=== PATIENT | female | born 1955 | race Caucasian/White ===

== ENCOUNTER 2022-11-14 15:21 | Emergency (ER) | payer MEDICARE, OTHER, SELFPAY ==
[2022-11-14 15:23] VITALS: BP 175/85; PULSE 85; RESP 14; TEMP 36.8; O2SAT 97; BMI 35.2
--- NOTE | 2022-11-14 15:55 | ED.VIS.CHEST ---
HPI History of Present Illness Chief Complaint: Chest Pain Informant: patient and spouse/S.O. Onset/Context/Timing Onset: Today Activity at onset: gradual Timing: Waxes and wanes Quality: Positive for Pressure Location: Substernal Current Severity: Mild Maximum Severity: Mild Narrative Narrative: Patient presents secondary to chest and left arm pain. She states she woke early this morning, around 2 AM, with pain in her left shoulder and upper left arm. She also had some pain in her left leg. She took some Tylenol along with a baby aspirin and went to sleep on the sofa. She states later on in the morning she developed some chest pressure and still had pain in her left shoulder along with some slight pain in her left jaw. She denies shortness of breath. Patient denies personal history of cardiac disease. Family history is noted in both of her parents. [facility] Medical History Hx of gastroesophageal reflux (GERD) Hypercholesteremia Hypertension Hypothyroid Home Medications diltiazem HCl 180 mg capsule,extended release 24 hr 180 mg PO Q24H 11/14/22 [History Last Taken Unknown] levothyroxine 75 mcg tablet 75 mcg PO DAILY 11/14/22 [History Last Taken Unknown] lisinopril 10 mg tablet 10 mg PO DAILY 11/14/22 [History Last Taken Unknown] omeprazole 20 mg capsule,delayed release 20 mg PO .qam 11/14/22 [History Last Taken Unknown] simvastatin 20 mg tablet 20 mg PO DAILY 11/14/22 [History Last Taken Unknown] Allergy/AdvReac Type Severity Reaction Status Date / Time No Known Allergies Allergy Verified 11/14/22 15:22 Social History Smoking Status: Never smoker ROS ROS ED Constitutional Constitutional ED: Denies chills or fever(s) Eyes Eyes: Denies change in vision or discharge from eye(s) ENT ENT ED: Denies discharge from eye(s), rhinorrhea or sore throat Cardiovascular Cardiovascular: Reports chest pain; Denies palpitations Respiratory/Chest Respiratory/Chest: Denies cough or dyspnea Gastrointestinal Gastrointestinal: Denies abdominal pain, diarrhea, nausea or vomiting Genitourinary Genitourinary ED: Denies difficulty urinating or dysuria Musculoskeletal Musculoskeletal: Reports extremity pain; Denies back pain Integumentary Denies Abrasions or rash Neurologic Neurologic: Reports headache(s); Denies weakness Psychiatric Psychiatric: Denies anxiety or depression Allergic/Immunologic Allergic/Immunologic ED: Denies lip swelling or urticaria EXAM Physical Exam Const Vital Signs: 11/14/22 15:23 11/14/22 15:28 11/14/22 16:07 Temperature 98.3 F Temperature Source Oral Pulse Rate 85 Respiratory Rate 14 Respiratory Effort Normal Non-Labored Blood Pressure 175/85 H Blood Pressure Mean 115 Pulse Ox 97 Oxygen Delivery Method Room Air Room Air 11/14/22 16:30 11/14/22 17:30 Temperature Temperature Source Pulse Rate 70 71 Respiratory Rate 16 15 Respiratory Effort Blood Pressure 144/86 H 135/78 H Blood Pressure Mean 105 97 Pulse Ox 96 95 Oxygen Delivery Method Room Air Positive well nourished and well developed General Appearance ED: well developed HEENT Reports normocephalic and head/scalp atraumatic Eyes PERRL and EOMs intact bilaterally Neck supple Chest Wall inspection of chest normal and palpation of chest normal Resp normal respiratory effort and clear to auscultation bilaterally Cardio regular rate and regular rhythm GI normal to inspection, nondistended, normoactive bowel sounds Palpation: soft Extremity normal to inspection Neuro oriented x3 and no sensory deficits noted Sensorium / Orientation: alert Motor Exam: strength 5/5 throughout Psych mental status grossly normal Skin no rashes or lesions noted Heart Score History: Slightly/Non-Suspicious ECG: Normal Age: >/= 65 years Risk Factors: 1 or 2 Risk Factors Troponin: </= Normal Limit Score: 3 MDM MDM MDM Narrative Medical decision making narrative: Patient had taken 1 baby aspirin earlier today. She was given 3 additional baby aspirin here. Patient is placed on radiographer cardiac catheterization. EKG obtained to evaluate for cardiac arrhythmia/ischemia. Chest x-ray obtained to evaluate for acute lung pathology, cardiac size, or mediastinal abnormality. Labwork obtained to evaluate for leukocytosis, anemia, and electrolyte derangement. History & Record Review Discussion w/independent historian: Patient and Significant other Lab Data Attestation: I reviewed the patient's lab results. Labs: Laboratory Results - last 24 hr 11/14/22 15:55 WBC 9.2 RBC 5.16 Hgb 16.5 H Hct 49.6 H MCV 96.1 MCH 32.0 MCHC 33.3 RDW Std Deviation 46.4 H RDW Coeff of Jus 13.0 Plt Count 249 MPV 10.2 Immature Gran % (Auto) 0.400 Neut % (Auto) 55.2 Lymph % (Auto) 32.6 [place] % (Auto) 7.2 Eos % (Auto) 3.6 Baso % (Auto) 1.0 Absolute Neuts (auto) 5.1 Absolute Lymphs (auto) 2.99 Nucleated RBC % 0 Sodium 141 Potassium 3.6 Chloride 110 H Carbon Dioxide 25.0 Anion Gap 6 BUN 14 Creatinine 0.90 Estim Creat Clear Calc 48.63 Est GFR (MDRD) Af Amer 80 Est GFR (MDRD) Non-Af 66 BUN/Creatinine Ratio 15.5 Glucose 123 H Calcium 9.3 Troponin I High Sens 5 Radiography Chest X-Ray - ED: 1 View, Read by ED Physician, Normal, Heart, Lungs and Mediastinum Diagnostic Testing: Clinical Impression(s) from Imaging Studies Chest X-Ray 11/14/22 19:09 IMPRESSION: No radiographic evidence of acute cardiopulmonary disease. Electronically Signed: Jose Alfredo Mobley MD at 16:19 EDT , EKG Initial EKG: Attestation: I personally reviewed and interpreted this EKG as follows: Interpretation: Sinus Rhythm (Sinus at 79 with no acute ischemia.) Treatment and Re-Evaluation :: CBC was normal white count with hemoglobin concentrated at 16.5. This appears consistent with her prior values. Chemistry studies are unremarkable. Troponin is normal at 5. Portable chest x-ray per my interpretation reveals no acute abnormalities. Radiology interpretation is reviewed and agrees. EKG reveals no acute ischemia. While in the emergency department patient's had no arrhythmias noted on radiographer cardiac catheterization. Test results are discussed with her as well as her at bedside. She has had greater than 12 hours of symptoms when blood work was drawn. I do not feel she needs a 2-hour repeat troponin. I did recommend follow-up with her primary care physician and return to the ER should her symptoms worsen or she has any other concerns. She voices understanding and agreement. Discharge Plan Triage Chief Complaint: Chest Pain ED Provider: Rosa Ann Dx/Rx/DC Orders Clinical Impression: Chest pain Instructions: ED Chest Pain, Uncertain Cause Prescriptions: No Action simvastatin 20 mg tablet 20 mg PO DAILY Patient Comments: TAKE 1 TABLET BY MOUTH EVERY DAY omeprazole 20 mg capsule,delayed release(DR/EC) 20 mg PO .qam Patient Comments: TAKE 1 CAPSULE BY MOUTH EVERY DAY BEFORE BREAKFAST 1/2 HOUR BEFORE MEAL levothyroxine 75 mcg tablet 75 mcg PO DAILY Patient Comments: TAKE 1 TABLET BY MOUTH ONCE DAILY. TAKE ON EMPTY STOMACH. FOR THYROID. lisinopril 10 mg tablet 10 mg PO DAILY Patient Comments: TAKE 1 TABLET BY MOUTH EVERY DAY diltiazem HCl 180 mg capsule,extended release 24hr 180 mg PO Q24H Patient Comments: TAKE 1 CAPSULE BY MOUTH ONCE DAILY Primary Care Provider: Sherry Gillespie Referrals: Sherry Gillespie MD [Primary Care Provider] - 3-5 Days if not improving Disposition Disposition: Home, Self Care
[2022-11-14 16:06] LABS: Absolute Lymphocyte Count 2.99 X10^3/uL (0.83-4.51); Absolute Neutrophil Count 5.1 X10^3/uL (2.0-7.7); Basophil# 0.09 X10^3/uL; Eosinophil# 0.33 X10^3/uL; Eosinophils% 3.6 % (0-5); Hematocrit 49.6 % (37-47); Hemoglobin 16.5 g/dL (12.0-15.0); Lymphocyte # 2.99 X10^3/ul (0.83-4.51); Lymphocyte % 32.6 % (19-41); Mean Corp Hgb Conc 33.3 g/dL (32-36); Mean Corpuscular Volume 96.1 fL (81-99); Mean Platelet Vol. 10.2 fl (6.2-12.0); Monocyte# 0.66 X10^3/uL; Monocyte% 7.2 % (0-10); NRBC Flagged by Analyzer 0 % (0-5); Neutrophil # 5.05 X10^3/uL (2.7-7.7); Neutrophil % 55.2 % (47-70); Platelet Count 249 K/mm3 (150-450); RBC Distribution Width SD 46.4 fl (35.1-43.9); Red Blood Count 5.16 M/mm3 (4.2-5.4); White Blood Count 9.2 K/mm3 (4.4-11.0)
[2022-11-14] MEDS: Aspirin 81 MG TAB.CHEW 243 MG PO (16:16)
[2022-11-14 16:27] LABS: Anion Gap 6 (5-15); BUN 14 mg/dL (7-18); BUN/Creat Ratio 15.5 RATIO (10-20); Calcium,Total 9.3 mg/dL (8.5-10.1); Chloride 110 mmol/L (98-107); EST Glomerular Filtration Rate 66 mL/min (>60); Est Glom Filt Rate - Afr Amer 80 mL/min (>60); Estimated Creatinine Clearance 48.63 ml/min; Glucose 123 mg/dL (74-106); Potassium 3.6 mmol/L (3.5-5.1); Sodium Level 141 mmol/L (136-145); Troponin-I HS (w/2H Reflex) 5 pg/mL (3.0-54.0)
[2022-11-14 16:30] VITALS: BP 144/86; PULSE 70; RESP 16; O2SAT 96
[2022-11-14 17:30] VITALS: BP 135/78; PULSE 71; RESP 15; O2SAT 95
[2022-11-14 17:58] VITALS: BP 141/79; PULSE 69; RESP 18; O2SAT 97
[2022-11-14 18:03] LABS: Reflex Troponin-HS? (from REC) Y
--- NOTE | 2022-11-14 19:09 | RAD_ITS ---
EXAM: XR CHEST, 1 VIEW CLINICAL INDICATION: chest pain TECHNIQUE: Frontal view of the chest. COMPARISON: No relevant prior studies available. FINDINGS: LUNGS AND PLEURAL SPACES: Unremarkable. No consolidation or edema. No pneumothorax. No effusion. HEART: Unremarkable. Cardiac silhouette not enlarged. MEDIASTINUM: Central airways and mediastinal contour are unremarkable. BONES/JOINTS: Unremarkable. SOFT TISSUES: Unremarkable. RAD/Chest 1 View (Portable) IMPRESSION: No radiographic evidence of acute cardiopulmonary disease. Electronically Signed: Jose Alfredo Mobley MD at 16:19 EDT ,
== END 2022-11-14 17:58 | disposition home or self-care (01) ==
PROVIDERS: Emergency Provider Emergency Medicine; PCP Internal Medicine; Visit Provider Emergency Medicine
DX: R07.9 Chest pain, unspecified (principal); I10 Essential (primary) hypertension; E78.00 Pure hypercholesterolemia, unspecified; E03.9 Hypothyroidism, unspecified; K21.9 Gastro-esophageal reflux disease without esophagitis; Z79.899 Other long term (current) drug therapy
CPT/HCPCS: 71045; 80048; 84484; 85025; 93005; 99284; A4216

== ENCOUNTER 2023-08-09 12:09 | Emergency (ER) | payer MEDICARE, OTHER, SELFPAY ==
[2023-08-09 12:10] VITALS: BP 158/89; PULSE 78; RESP 14; TEMP 36.6; O2SAT 99; BMI 36.5
--- NOTE | 2023-08-09 12:21 | ED.RN ---
PT STOOD BY TRIAGE EXAM ROOM LISTENING TO THE PT THAT WAS BEING TRIAGED AND WHY THEY WERE HERE.
--- NOTE | 2023-08-09 12:36 | EKG12_ITS ---
Test Reason : CP Blood Pressure : / mmHG Vent. Rate : 073 BPM Atrial Rate : 073 BPM P-R Int : 176 ms QRS Dur : 088 ms QT Int : 382 ms P-R-T Axes : 066 029 030 degrees QTc Int : 420 ms Normal sinus rhythm with sinus arrhythmia Normal ECG Confirmed by Mal Escobar ([id number]), news editor LOYDA DURHAM ([id number]) on 08/10/2023 11:04:05 AM Referred By: NOEMI/ANGEL Confirmed By:Mal Escobar
--- NOTE | 2023-08-09 12:37 | EX.ED.DYSGE1 ---
HPI <LIZZETH Duran - Last Filed: 08/09/23 16:33> History of Present Illness Chief Complaint: Chest Pain Narrative Narrative: Patient is a 68-year-old female with history of hypertension hyperlipidemia, hypothyroidism, GERD who presents to the emergency department for pain to the left shoulder left arm as well as pain to the left side of her chest. Patient states that yesterday, she developed some pain to her left shoulder that went down the back of her arm. Patient dates today the pain went to her left shoulder as well as to the left and right side of her chest and down her back. I spoke with the patient the patient's , over the last week, the patient has been doing a lot of spring cleanup as well as cleaning a lot of closets lifting above her head. Patient is here because the chest pain was concerning to her. Patient dates her pain at this time is much less than it was earlier today. PFSH <LIZZETH Duran - Last Filed: 08/09/23 16:33> [facility] Medical History Hx of gastroesophageal reflux (GERD) Hypercholesteremia Hypertension Hypothyroid Home Medications diltiazem HCl 180 mg capsule,extended release 24 hr 180 mg PO Q24H 11/14/22 [History Last Taken Unknown] levothyroxine 75 mcg tablet 75 mcg PO DAILY 11/14/22 [History Last Taken Unknown] lisinopril 10 mg tablet 10 mg PO DAILY 11/14/22 [History Last Taken Unknown] omeprazole 20 mg capsule,delayed release 20 mg PO .qam 11/14/22 [History Last Taken Unknown] simvastatin 20 mg tablet 20 mg PO DAILY 11/14/22 [History Last Taken Unknown] Allergy/AdvReac Type Severity Reaction Status Date / Time No Known Allergies Allergy Verified 08/09/23 12:10 Social History Smoking Status: Never smoker ROS <LIZZETH Duran - Last Filed: 08/09/23 16:33> ROS ED ROS Narrative Constitutional: Negative for fever, chills, weight loss, weakness Eyes: Negative for vision loss, vision change, double vision ENT: Negative for any sore throat, ear pain, congestion Cardiovascular: Negative for any palpitations. Positive for chest pain, chest tightness Respiratory: Negative for any cough, sputum production, hemoptysis, dyspnea, dyspnea on exertion, orthopnea Gastrointestinal: Negative for any abdominal pain, nausea, vomiting, diarrhea, constipation, blood in stool, blood in vomit : Negative for any urinary frequency, dysuria, retention, blood in urine Muscle skeletal: Negative for any neck pain, back pain. Positive for left shoulder pain Neurological: Negative for any headache, syncope, dizziness Skin: Negative for any rashes, itching, abrasions, lacerations Psychiatric: Negative for any depression, anxiety, stress, suicidal ideation, homicidal ideation Hematologic: Negative for any excessive bruising, easy bleeding EXAM <LIZZETH Duran - Last Filed: 08/09/23 16:33> Physical Exam Narrative Exam Narrative: Vital signs reviewed. HEET: Head normocephalic atraumatic, TMs clear bilaterally. Posterior pharynx is clear, moist mucous membranes. Nares clear bilaterally. Neck: Supple with no lymphadenopathy or tenderness. No signs of meningismus. Cardiac: Regular rate and rhythm no murmurs gallops or rubs, equal peripheral pulses bilaterally. Respiratory: Lungs clear to auscultation bilaterally. No chest tenderness. Abdomen: Soft, nontender, nondistended. No abdominal bruit or pulsatile masses. No hepatosplenomegaly Extremities: No peripheral edema, no signs of gross trauma or deformity. Active full range of motion of all extremities. Neuro: Cranial nerves II through XII intact, no focal neurological deficits. Skin: Clean dry and intact with no rash, purpura, petechiae, vesicles or pustules. Backs/flank: No CVA tenderness, no midline spinal tenderness, no deformity. Psych: Normal mood and affect. No SI, HI or acute psychosis. Const Vital Signs: 08/09/23 12:10 08/09/23 12:10 08/09/23 13:10 Temperature 98 F Temperature Source Temporal Pulse Rate 78 Respiratory Rate 14 Respiratory Effort Normal Non-Labored Blood Pressure 158/89 H Blood Pressure Mean 112 Pulse Ox 99 Oxygen Delivery Method Room Air Room Air 08/09/23 14:10 08/09/23 16:00 08/09/23 16:46 Temperature 98.3 F Temperature Source Pulse Rate 72 71 76 Respiratory Rate 16 16 18 Respiratory Effort Blood Pressure 137/65 H 126/78 H 126/78 H Blood Pressure Mean 89 94 94 Pulse Ox 98 96 94 Oxygen Delivery Method Room Air Room Air Positive well nourished and well developed General Appearance ED: well developed <Dr. Bob Chappell MD - Last Filed: 08/09/23 18:15> Physical Exam Const Vital Signs: 08/09/23 12:10 08/09/23 12:10 08/09/23 13:10 Temperature 98 F Temperature Source Temporal Pulse Rate 78 Respiratory Rate 14 Respiratory Effort Normal Non-Labored Blood Pressure 158/89 H Blood Pressure Mean 112 Pulse Ox 99 Oxygen Delivery Method Room Air Room Air 08/09/23 14:10 08/09/23 16:00 08/09/23 16:46 Temperature 98.3 F Temperature Source Pulse Rate 72 71 76 Respiratory Rate 16 16 18 Respiratory Effort Blood Pressure 137/65 H 126/78 H 126/78 H Blood Pressure Mean 89 94 94 Pulse Ox 98 96 94 Oxygen Delivery Method Room Air Room Air MDM <LIZZETH Duran - Last Filed: 08/09/23 16:33> MDM Lab Data Labs: Laboratory Results - last 24 hr 08/09/23 08/09/23 12:50 15:50 WBC 8.3 RBC 4.98 Hgb 15.6 H Hct 46.8 MCV 94.0 MCH 31.3 MCHC 33.3 RDW Std Deviation 44.5 H RDW Coeff of [place]su 12.9 Plt Count 253 MPV 9.4 Immature Gran % (Auto) 0.500 Neut % (Auto) 60.3 Lymph % (Auto) 28.3 [place] % (Auto) 6.9 Eos % (Auto) 3.0 Baso % (Auto) 1.0 Absolute Neuts (auto) 5.0 Absolute Lymphs (auto) 2.34 Nucleated RBC % 0 Sodium 140 Potassium 3.8 Chloride 110 H Carbon Dioxide 26.0 Anion Gap 4 L BUN 18 Creatinine 0.92 Estim Creat Clear Calc 62.11 Est GFR (MDRD) Af Amer 78 Est GFR (MDRD) Non-Af 65 BUN/Creatinine Ratio 19.5 Glucose 118 H Calcium 9.1 Troponin I High Sens 4 4 Radiography Diagnostic Testing: Clinical Impression(s) from Imaging Studies Chest X-Ray 08/09/23 13:22 IMPRESSION: Normal x-ray examination of the chest. Electronically Signed: Magen Foley MD at 13:35 EDT , EKG Normal sinus rhythm with sinus arrhythmia: Attestation: I personally reviewed and interpreted this EKG as follows: Comments: EKG rate of 73 bpm, DC interval 176 ms, QRS duration 88 ms, no acute ST elevation, no acute infarct noted. Treatment and Re-Evaluation :: Differential diagnosis includes however is not limited to: ACS, [place], muscle spasm, chest wall strain, PE Patient appears to be in no obvious respiratory distress vital signs are stable, patient appears nontoxic. Presenting to the emergency department with complaints of left-sided shoulder pain, chest pain. Patient will receive a full cardiac workup including 2 troponins, basic laboratory values. Patient be given aspirin as well as Toradol to see if this decreases her pain. Patient appears to be in no distress. Secondary the patient performing multiple above the head lifting for spring clean up, this could also be muscle skeletal. All radiologic examinations were read, reviewed by the emergency department attending. From these reads, a plan of care will be put in place. Patient CBC was unremarkable, patient's chemistries were unremarkable, patient initial troponin was 4 which is negative. Patient remains stable. Patient will receive a repeat troponin. EKG was unremarkable, no evidence of ACS or [place]. Chest x-ray was clear. Patient repeat troponin was negative. At this time, is no evidence of any ACS, [place]. I believe this is more muscle skeletal in nature. Patient will continue following up outpatient. All questions answered, patient stable for discharge <Dr. Bob Chappell MD - Last Filed: 08/09/23 18:15> [facility] Narrative Medical decision making narrative: I have personally performed a face to face assessment of the patient and have reviewed the [place] Note. I performed a substantive portion of the visit including all aspects of the following. My don findings include: History is remarkable for initially left shoulder pain a couple days ago. She now is complaining of left-sided chest pain radiating posteriorly and into the axilla. There is no associated symptoms and no exacerbating, precipitating or alleviating factors. Both episodes occurred at rest. She has no known history of coronary disease. She does have a history of hypertension, hypothyroidism and hypercholesterolemia. She did do work at home. The shoulder pain may have a slight reproducible component. She denies paresthesia, anesthesia or motor weakness upper extremity. She does have history of neck problems. There is no history of direct trauma. She denies history of peptic ulcer disease. She does have history of GERD. This is not her GERD pain. She denies black or maroon-colored stool. She denies urologic symptoms. She has no history of VTE. Exam is remarkable for obesity. She appears no distress. HEENT exam is normal. Lungs are clear to auscultation. Breath sounds are symmetric. Heart is regular. Rate is normal. There is no murmur, gallop or rub. She does have some reproducible pain left trapezius area. Axillary, median, radial and ulnar function intact. Radial pulses 2+. M abdomen is soft nontender. No hepatosplenomegaly. There is no asymmetry, swelling, discoloration, leg vein distention, palpable cords or tenderness along the distribution of the deep venous system. Alert oriented x 3 Decision Making cardiac versus cardiac etiology. Noncardiac includes GERD, pulmonary musculoskeletal. EKG, troponin and appropriate blood work is ordered. Other additions or changes: [None] Lab Data Labs: Laboratory Results - last 24 hr 08/09/23 08/09/23 12:50 15:50 WBC 8.3 RBC 4.98 Hgb 15.6 H Hct 46.8 MCV 94.0 MCH 31.3 MCHC 33.3 RDW Std Deviation 44.5 H RDW Coeff of Jus 12.9 Plt Count 253 MPV 9.4 Immature Gran % (Auto) 0.500 Neut % (Auto) 60.3 Lymph % (Auto) 28.3 [place] % (Auto) 6.9 Eos % (Auto) 3.0 Baso % (Auto) 1.0 Absolute Neuts (auto) 5.0 Absolute Lymphs (auto) 2.34 Nucleated RBC % 0 Sodium 140 Potassium 3.8 Chloride 110 H Carbon Dioxide 26.0 Anion Gap 4 L BUN 18 Creatinine 0.92 Estim Creat Clear Calc 62.11 Est GFR (MDRD) Af Amer 78 Est GFR (MDRD) Non-Af 65 BUN/Creatinine Ratio 19.5 Glucose 118 H Calcium 9.1 Troponin I High Sens 4 4 Radiography Diagnostic Testing: Clinical Impression(s) from Imaging Studies Chest X-Ray 08/09/23 13:22 IMPRESSION: Normal x-ray examination of the chest. Electronically Signed: Magen Foley MD at 13:35 EDT , Discharge Plan Triage Chief Complaint: Chest Pain ED Midlevel Provider: Jorge Reyes ED Provider: Bob Chappell Dx/Rx/DC Orders Clinical Impression: Acute chest wall pain, Muscle strain, Back strain Instructions: Treating?Strains and Sprains, ED Chest Pain, Noncardiac Prescriptions: No Action simvastatin 20 mg tablet 20 mg PO DAILY Patient Comments: TAKE 1 TABLET BY MOUTH EVERY DAY omeprazole 20 mg capsule,delayed release(DR/EC) 20 mg PO .qam Patient Comments: TAKE 1 CAPSULE BY MOUTH EVERY DAY BEFORE BREAKFAST 1/2 HOUR BEFORE MEAL levothyroxine 75 mcg tablet 75 mcg PO DAILY Patient Comments: TAKE 1 TABLET BY MOUTH ONCE DAILY. TAKE ON EMPTY STOMACH. FOR THYROID. lisinopril 10 mg tablet 10 mg PO DAILY Patient Comments: TAKE 1 TABLET BY MOUTH EVERY DAY diltiazem HCl 180 mg capsule,extended release 24hr 180 mg PO Q24H Patient Comments: TAKE 1 CAPSULE BY MOUTH ONCE DAILY Primary Care Provider: Sherry Gillespie Referrals: Sherry Gillespie MD [Primary Care Provider] - Activity Restrictions/Additional Instructions: Please follow-up outpatient. Please use ice, perform gentle stretching. You had a cardiac workup today that was negative. Return for any worsening symptoms Disposition Disposition: Home, Self Care Discharge Date/Time: 08/09/23 16:52
[2023-08-09] MEDS: Aspirin 81 MG TAB.CHEW 324 MG PO (13:08)
[2023-08-09] MEDS: Ketorolac 15 MG/ML Vial IV (13:09)
[2023-08-09 13:12] LABS: Absolute Lymphocyte Count 2.34 X10^3/uL (0.83-4.51); Basophil# 0.08 X10^3/uL; Eosinophil# 0.25 X10^3/uL; Hematocrit 46.8 % (37-47); Hemoglobin 15.6 g/dL (12.0-15.0); Lymphocyte # 2.34 X10^3/ul (0.83-4.51); Lymphocyte % 28.3 % (19-41); Mean Corp Hgb Conc 33.3 g/dL (32-36); Mean Corpuscular Hgb 31.3 pg (27.0-32.0); Mean Platelet Vol. 9.4 fl (6.2-12.0); Monocyte# 0.57 X10^3/uL; Monocyte% 6.9 % (0-10); NRBC Flagged by Analyzer 0 % (0-5); Neutrophil # 4.98 X10^3/uL (2.7-7.7); Neutrophil % 60.3 % (47-70); Platelet Count 253 K/mm3 (150-450); RBC Distribution Width CV 12.9 % (11.6-14.6); RBC Distribution Width SD 44.5 fl (35.1-43.9); Red Blood Count 4.98 M/mm3 (4.2-5.4); White Blood Count 8.3 K/mm3 (4.4-11.0)
--- NOTE | 2023-08-09 13:22 | RAD_ITS ---
STUDY: X-RAY CHEST REASON FOR EXAM: Female, 68 years old. Chest pain TECHNIQUE: Single AP portable view of the chest. COMPARISON: Comparison is made with prior study dated November 14, 2022. FINDINGS: EKG electrodes are seen. The lungs are clear and expanded. There is no demonstrated pleural abnormality. Normal size heart. Normal mediastinum and galina. Normal visualized pulmonary arteries. Normal visualized aortic arch and descending thoracic aorta. Normal visualized thoracic spine. Normal visualized ribs, clavicles, and shoulders. There is no demonstrated abnormality of the visualized soft tissue structures of the upper abdomen. RAD/Chest 1 View (Portable) IMPRESSION: Normal x-ray examination of the chest. Electronically Signed: Magen Foley MD at 13:35 EDT ,
[2023-08-09 13:28] LABS: Anion Gap 4 (5-15); BUN 18 mg/dL (7-18); BUN/Creat Ratio 19.5 RATIO (10-20); Calcium,Total 9.1 mg/dL (8.5-10.1); Chloride 110 mmol/L (98-107); Creatinine, Serum 0.92 mg/dL (0.55-1.02); EST Glomerular Filtration Rate 65 mL/min (>60); Est Glom Filt Rate - Afr Amer 78 mL/min (>60); Estimated Creatinine Clearance 62.11 ml/min; Glucose 118 mg/dL (74-106); Potassium 3.8 mmol/L (3.5-5.1); Sodium Level 140 mmol/L (136-145); Troponin-I HS (w/2H Reflex) 4 pg/mL (3.0-54.0)
[2023-08-09 14:10] VITALS: BP 137/65; PULSE 72; RESP 16; O2SAT 98
[2023-08-09 15:04] LABS: Reflex Troponin-HS? (from REC) Y
[2023-08-09 16:00] VITALS: BP 126/78; PULSE 71; RESP 16; O2SAT 96
[2023-08-09 16:26] LABS: Troponin-I HS 4 pg/mL (3.0-54.0)
[2023-08-09 16:46] VITALS: BP 126/78; PULSE 76; RESP 18; TEMP 36.8; O2SAT 94
== END 2023-08-09 16:52 | disposition home or self-care (01) ==
PROVIDERS: Nurse Practitioner; Emergency Provider Emergency Medicine; PCP Internal Medicine; Visit Provider Emergency Medicine
DX: R07.89 Other chest pain (principal); S39.012A Strain of muscle, fascia and tendon of lower back, initial encounter; I10 Essential (primary) hypertension; E78.5 Hyperlipidemia, unspecified; E03.9 Hypothyroidism, unspecified; K21.9 Gastro-esophageal reflux disease without esophagitis; Z79.899 Other long term (current) drug therapy; X58.XXXA Exposure to other specified factors, initial encounter; Y93.89 Activity, other specified
CPT/HCPCS: 36415; 71045; 80048; 84484; 85025; 93005; 96374; 99284; A4216